=== PATIENT | female | born 1985 | race Caucasian/White ===

== ENCOUNTER → 2017-01-02 | Outpatient (CLI) | payer OTHER ==
--- NOTE | 2017-01-02 16:53 | DX ---
Left Ankle, Three Views History: Pain, increasing x6 months, history of rheumatoid arthritis Findings: There is soft tissue swelling medially in the region of the deltoid ligament complex. The b ones are well-mineralized without erosive change or periarticular demineralization. No fracture defor mity, ankle joint effusion, or arthritis is identified. The posterior calcaneus is normally mineraliz ed as is the proximal fifth metatarsal. Impression: Medial soft tissue swelling without underlying bone or joint abnormality..
== END ==
LOC: BRMIMAGING 15:04
PROVIDERS: ATTEND Internal Medicine
DX: M25.572 Pain in left ankle and joints of left foot (principal); M79.89 Other specified soft tissue disorders; Z87.39 Personal history of other diseases of the musculoskeletal system and connective tissue
CPT/HCPCS: 73610-PO